=== PATIENT | male | born 2000 | race Caucasian/White ===

== ENCOUNTER 2023-12-08 14:45 | Emergency (ER) | payer MEDICAID ==
--- NOTE | 2023-12-08 15:02 | ED Physician Documentation ---
PD HPI MHE - Stated complaint Stated Complaint: KARRI/AMS - History obtained from History obtained from: Patient, EMS - Additional information Additional information: Patient is a 23-year-old with unknown past medical history presenting for yue luation of reportedly being agitated and aggressive at the [facility] earlier today. Per the paramedics they were called because the patient was being aggressive but they were not offered any further details. There was KARRI paperwork filled out by [facility] that states that he has been off of his medications and was not following the rules of this [facility] emergency department. Mother was also reportedly at the scene. Per EMS patient has been calm and cooperative.Patient denies SI.With asking questions about what may have occurred today patient starts talking about being at a gas station in [place] several years ago when he left his mother's house.Patient is supposed to be on Latuda but has been off this medication. Review of Systems Constitutional: denies: Fever Cardiac: denies: Chest pain / pressure Respiratory: denies: Dyspnea GI: denies: Abdominal Pain PD PAST MEDICAL HISTORY - Present Medications Home Medications: Ambulatory Orders Medication Instructions Recorded Confirmed Lurasidone HCl 60 mg PO DAILY 12/08/23 12/08/23 - Allergies Allergies/Adverse Reactions: Allergies Allergy/AdvReac Type Severity Reaction Status Date / Time No Known Drug Allergies Allergy Verified 12/08/23 15:04 PD ED PE NORMAL - General General: Alert and oriented X 3, No acute distress, Well developed/nourished - HEENT HEENT: Atraumatic, PERRL - Neck Neck: Supple, no meningeal sign - Cardiac Cardiac: RRR, Strong equal pulses - Respiratory Respiratory: No respiratory distress, Clear bilaterally - Abdomen Abdomen: Soft, Non tender - Derm Derm: Warm and dry - Neuro Neuro: Alert and oriented X 3, No motor deficit, Normal speech Results - Vitals Vitals: Vital Signs - 24 hr 12/08/23 14:50 Temperature 37.4 C Heart Rate 104 H Respiratory 20 Rate Blood Pressure 148/66 H O2 Saturation 97 Oxygen O2 Source Room air - Labs Labs: Laboratory Tests 12/08/23 12/08/23 12/08/23 15:04 15:04 15:04 WBC 13.0 H RBC 4.70 Hgb 14.6 Hct 42.6 MCV 90.6 MCH 31.1 H MCHC 34.3 RDW 12.3 Plt Count 248 MPV 10.0 Neut # (Auto) 10.6 H Lymph # (Auto) 2.0 Morrison # (Auto) 0.4 Eos # (Auto) 0.0 Baso # (Auto) 0.0 Absolute Nucleated RBC 0.00 Nucleated RBC % 0.0 Sodium 139 Potassium 3.6 Chloride 104 Carbon Dioxide 29 Anion Gap 6.0 BUN 6 Creatinine 0.7 Estimated GFR (MDRD) 137 Glucose 99 Calcium 9.8 Magnesium 1.9 Total Bilirubin 0.4 AST 17 ALT 16 Alkaline Phosphatase 69 Total Creatine Kinase 223 Total Protein 6.9 Albumin 4.8 Globulin 2.1 Albumin/Globulin Ratio 2.3 H Lipase < 10 L TSH 1.33 Urine Color YELLOW Urine Clarity CLEAR Urine pH 8.0 H Ur Specific [place] 1.015 Urine Protein NEGATIVE Urine Glucose (UA) NEGATIVE Urine Ketones NEGATIVE Urine Occult Blood NEGATIVE Urine Nitrite NEGATIVE Urine Bilirubin NEGATIVE Urine Urobilinogen 0.2 (NORMAL) Ur Leukocyte Esterase NEGATIVE Ur Microscopic Review NOT INDICATED Urine Culture Comments NOT INDICATED Salicylates < 1.5 Urine Opiates Screen NEGATIVE Ur Buprenorphine Scrn NEGATIVE Ur Oxycodone Screen NEGATIVE Urine Methadone Screen NEGATIVE Acetaminophen < 0.1 Ur Barbiturates Screen NEGATIVE Ur Tricyclics Screen NEGATIVE Ur Phencyclidine Scrn NEGATIVE Ur Amphetamine Screen NEGATIVE U Methamphetamines Scrn NEGATIVE U Benzodiazepines Scrn NEGATIVE Urine Cocaine Screen NEGATIVE U Cannabinoids Screen NEGATIVE Ur Drug Screen Comment CUTOFF CONC BELOW: Ethyl Alcohol < 10.0 PD Medical Decision Making - ED course Complexity details: reviewed results, d/w patient ED course: Patient is a 23-year-old male with a history of schizophrenia on Latuda who has been off his medication for several weeks as having difficulty in obtaining it. Reportedly has been acting more agitated recently while staying at the [facility]. Mental health screening labs were obtained without any significant findings and patient has been medically cleared. Patient does not appear to have insight into recent events and is difficult in getting a clear story from. KARRI paperwork is with the patient. I have requested the DCR to evaluate the patient for involuntary hold for acute psychosis and decompensation. Patient signed out to oncoming provider at shift change pending DCR evaluation. Departure - Departure Clinical Impression: Psychiatric symptoms Condition: Good
[2023-12-08 15:09] LABS: BILIRUBIN,URINE NEGATIVE (NEGATIVE); GLUCOSE, URINE (UA) NEGATIVE (NEGATIVE); KETONES,URINE (UA) NEGATIVE (NEGATIVE); LEUKOCYTE ESTERASE, URINE NEGATIVE (NEGATIVE); NITRITE,URINE NEGATIVE (NEGATIVE); OCCULT BLOOD,URINE NEGATIVE (NEGATIVE); PROTEIN,URINE NEGATIVE (NEGATIVE); UROBILINOGEN,URINE 0.2 (NORMAL) E.U./dL (NORMAL)
[2023-12-08 15:12] LABS: CLARITY,URINE CLEAR (CLEAR)
[2023-12-08 15:17] LABS: BASOPHILS % (AUTO) 0.2 %; HCT - HEMATOCRIT 42.6 % (42.0-52.0); HGB - HEMOGLOBIN 14.6 g/dL (14.0-18.0); LYMPHOCYTES % (AUTO) 15.2 %; MEAN CORPUSCULAR HEMOGLOBIN 31.1 pg (27.0-31.0); MEAN CORPUSCULAR HGB CONC 34.3 g/dL (32.0-36.0); MEAN CORPUSCULAR VOLUME 90.6 fL (80.0-94.0); MONOCYTES # (AUTO) 0.4 10^3/uL (0.0-1.0); MONOCYTES % (AUTO) 3.2 %; NEUTROPHILS # (AUTO) 10.6 10^3/uL (1.5-6.6); NEUTROPHILS % (AUTO) 81.2 %; PLT - PLATELET COUNT 248 10^3/uL (130-450); RED CELL DISTRIBUTION WIDTH 12.3 % (12.0-15.0)
[2023-12-08 15:25] LABS: AMPHETAMINE SCREEN,URINE NEGATIVE (NEGATIVE); BARBITURATE SCREEN,UR NEGATIVE (NEGATIVE); BENZODIAZEPINES SCREEN, URINE NEGATIVE (NEGATIVE); BUPRENORPHINE SCREEN, URINE NEGATIVE (NEGATIVE); COCAINE SCREEN URINE NEGATIVE (NEGATIVE); METHADONE SCREEN, URINE NEGATIVE (NEGATIVE); METHAMPHETAMINES SCREEN, URINE NEGATIVE (NEGATIVE); OPIATE SCREEN, URINE NEGATIVE (NEGATIVE); OXYCODONE SCREEN, URINE NEGATIVE (NEGATIVE); THC CANNABINOID SCREEN, URINE NEGATIVE (NEGATIVE); TRICYCLIC ANTIDEPRESSANT,URINE NEGATIVE (NEGATIVE)
[2023-12-08 15:29] LABS: ALBUMIN 4.8 g/dL (3.2-5.5); ALBUMIN/GLOBULIN RATIO 2.3 (1.0-2.2); ALKALINE PHOSPHATASE 69 IU/L (42-121); ALT ALANINE AMINOTRANSFERASE 16 IU/L (10-60); AST ASPARTATE AMINOTRANSFERASE 17 IU/L (10-42); BILIRUBIN,TOTAL 0.4 mg/dL (0.2-1.0); BUN - BLOOD UREA NITROGEN 6 mg/dL (6-20); CALCIUM 9.8 mg/dL (8.5-10.3); CARBON DIOXIDE - CO2 29 mmol/L (21-32); CHLORIDE 104 mmol/L (101-111); CK- CREATINE KINASE 223 IU/L (30-223); CREATININE 0.7 mg/dL (0.6-1.3); ETOH - ETHANOL < 10.0 mg/dL; GFR - MDRD 137 (>89); GLUCOSE 99 mg/dL (74-104); MAGNESIUM 1.9 mg/dL (1.7-2.3); POTASSIUM 3.6 mmol/L (3.5-4.5); SODIUM 139 mmol/L (135-145); TOTAL PROTEIN 6.9 g/dL (6.4-8.9)
[2023-12-08 15:31] LABS: ACETAMINOPHEN < 0.1 ug/mL; LIPASE < 10 U/L (11-82); SALICYLATE < 1.5 mg/dL
[2023-12-08 15:37] LABS: THYROID STIMULATING HORMONE 1.33 uIU/mL (0.34-5.60)
[2023-12-08] MEDS: NICOTINE 14 MG PATCH TOP STA (16:58)
[2023-12-08] MEDS: LORazepam 1 MG TABLET PO STA (18:50)
[2023-12-08 20:23] VITALS: O2SAT 99
--- NOTE | 2023-12-08 20:40 | ED Physician Documentation ---
ED Addendum - Addendum Addendum: 12/08/23 20:33 Himanshu Edouard is a 23-year-old male with a history of bipolar affective disorder and psychosis who has been off of his medication for 2 weeks and has begun to have difficulty with sleeping. Today at the [facility] he had some aggressive behavior and was detained by the police for evaluation. The patient has been medically cleared the DCR has come to evaluate the patient and he is now willing to be hospitalized. He has had a prior hospitalization 2 years ago for 12 days and this was apparently helpful. The patient accepts hospitalization without reservation.
[2023-12-09 00:24] LABS: B. PARAPERTUSSIS- RESP PCR PAN NOT DETECTED; B. PERTUSSIS- RESP PCR PANEL NOT DETECTED; C. PNEUMONIAE- RESP PCR PANEL NOT DETECTED; CORONAVIRUS 229E-RESP PCR NOT DETECTED; CORONAVIRUS HKU1-RESP PCR NOT DETECTED; CORONAVIRUS NL63-RESP PCR NOT DETECTED; CORONAVIRUS OC43-RESP PCR NOT DETECTED; HUMAN METAPNEUMOVIRUS NOT DETECTED; INFLUENZA A- RESP PCR PANEL NOT DETECTED; INFLUENZA B - RESP PCR PANEL NOT DETECTED; M. PNEUMONIAE- RESP PCR PANEL NOT DETECTED; PARAINFLUENZA VIRUS 1 NOT DETECTED; PARAINFLUENZA VIRUS 2 NOT DETECTED; PARAINFLUENZA VIRUS 3 NOT DETECTED; PARAINFLUENZA VIRUS 4 NOT DETECTED; RHINOVIRUS/ENTEROVIRUS NOT DETECTED; RSV- RESP PCR PANEL NOT DETECTED; SARS-CoV-2 -RESP PCR PANEL NOT DETECTED
[2023-12-09 04:19] VITALS: BP 111/63
== END 2023-12-09 07:23 ==
LOC: ED 14:45
DX: Z04.6 Encounter for general psychiatric examination, requested by authority (principal); F31.9 Bipolar disorder, unspecified; Z91.138 Patient's unintentional underdosing of medication regimen for other reason
CPT/HCPCS: 36415; 80053; 80143; 80179; 80306; 81003; 82077; 82550; 83690; 83735; 84443; 85025; 87633; 99284; 99285; A9270; J8499; 81001; 87086

== ENCOUNTER 2024-01-13 08:00 | Outpatient (CLI) | payer MEDICAID, OTHER | END 2024-01-13 23:59 | disposition home or self-care (01) | LOC: LAB.N 08:00 | PROVIDERS: ATTEND Physician Assistant Medical | DX: J02.9 Acute pharyngitis, unspecified (principal) | CPT/HCPCS: 87070; 87077 ==

== ENCOUNTER 2024-01-24 06:23 | Emergency (ER) | payer MEDICAID ==
--- NOTE | 2024-01-24 07:08 | ED Physician Documentation ---
PD HPI MHE - Stated complaint Stated Complaint: MHE - Chief complaint Chief Complaint: MHE - History obtained from History obtained from: Patient - History of Present Illness Primary symptom: Depression, Anxiety, Out of meds, Other (The patient is here with his mother who is helping him with his care. He had been living in [place] and recently moved back up here. Hospitalized at [facility] recent ly. Prescribed new medications without refills. Trying to get primary care but appointment is still a ways away.) Timing - onset: How many days ago (The patient and his mother state he is starting to feel more anxious over the last few days being out of his duloxetine and BuSpar. They are trying to obtain primary care but have not been able to get an appointment for less than a month or 2.) Contributing factors: Out of meds Similar symptoms before: Diagnosis (depression and anxiety with apparent affective psychosis at times.) Recently seen: Emergency Dept, Admitted ([facility] month or so ago.) PD PAST MEDICAL HISTORY - Past Medical History Past Medical History: Yes Neuro: None Psych: Depression, Anxiety, Other - Past Surgical History Past Surgical History: No - Present Medications Home Medications: Ambulatory Orders Medication Instructions Recorded Confirmed Lurasidone HCl 60 mg PO DAILY 12/08/23 12/08/23 DULoxetine [Cymbalta] 20 mg PO BID 30 Days #60 cap 01/24/24 OLANZapine [Olanzapine] 5 mg PO BID 30 Days #60 tablet 01/24/24 busPIRone [Buspar] 5 mg PO BID 30 Days #60 tablet 01/24/24 hydrOXYzine pamoate [Hydroxyzine 50 mg PO Q8H PRN #60 cap 01/24/24 Pamoate] traZODone [Desyrel] 50 mg PO HS 30 Days #30 tablet 01/24/24 - Allergies Allergies/Adverse Reactions: Allergies Allergy/AdvReac Type Severity Reaction Status Date / Time No Known Drug Allergies Allergy Verified 01/24/24 06:29 - Social History Does the pt smoke?: Yes Smoking Status: Current every day smoker Does the pt drink ETOH?: No Does the pt have substance abuse?: Yes - Immunizations Immunizations are current?: No - POLST Patient has POLST: No PD ED PE NORMAL - Vitals Vital signs reviewed: Yes - General General: Alert and oriented X 3, No acute distress, Well developed/nourished - Derm Derm: Normal color, Warm and dry - Neuro Eye Opening: Spontaneous Motor: Obeys Commands Verbal: Oriented GCS Score: 15 - Psych Psych: Normal mood Results - Vitals Vitals: Vital Signs - 24 hr 01/24/24 01/24/24 06:29 08:01 Temperature 37 C 37 C Heart Rate 91 73 Respiratory 16 18 Rate Blood Pressure 144/77 H 127/66 O2 Saturation 95 99 Oxygen O2 Source Room air PD Medical Decision Making - ED course Complexity details: considered differential (The patient is here for refill of his medications. He had been hospitalized recently at [facility] for affective psychosis and anxiety. Trying to get primary care for refills but no timely appointments. Here with his mother for refills. Is been doing okay with a new job. Slightly anxious.), d/w patient Departure - Departure Disposition: Home, Self Care Clinical Impression: Encounter for medication refill, Depression Condition: Stable Record reviewed to determine appropriate education?: Yes Follow-Up: [facility] [place] [Provider Group] [facility] [Provider Group] Prescriptions: busPIRone [Buspar] 5 mg PO BID 30 Days #60 tablet DULoxetine [Cymbalta] 20 mg PO BID 30 Days #60 cap traZODone [Desyrel] 50 mg PO HS 30 Days #30 tablet hydrOXYzine pamoate [Hydroxyzine Pamoate] 50 mg PO Q8H PRN #60 cap PRN Reason: Anxiety OLANZapine [Olanzapine] 5 mg PO BID 30 Days #60 tablet Comments: It can be a process to get a new primary care on would be so I did give a prescription for a months worth of all your medicines. Hopefully this is time enough to get established. The walk-in clinics may be able to help in subsequently to. I did provide the name of to the clinics in [place] and they would be health clinics are having more providers now so there lag time for new patients is not too bad. I sent new prescriptions to [facility] pharmacy. Take them regularly as you have been. Stay well-hydrated. Forms: PCP List
[2024-01-24] MEDS: DULoxetine 20 MG CAPSULE PO STA (07:57)
[2024-01-24] MEDS: busPIRone 5 MG TABLET PO STA (07:57)
[2024-01-24 08:10] VITALS: BP 127/66; O2SAT 99
== END 2024-01-24 08:01 | disposition home or self-care (01) ==
LOC: ED 06:23
DX: Z76.0 Encounter for issue of repeat prescription (principal); F32.A Depression, unspecified; F41.9 Anxiety disorder, unspecified; F17.200 Nicotine dependence, unspecified, uncomplicated
CPT/HCPCS: 99281; 99282; A9270